=== PATIENT | male | born 1960 | race Caucasian/White ===

== ENCOUNTER → 2025-05-15 07:12 | Outpatient (REF) | payer OTHER, SELFPAY | LOC: PAVMRI 07:12 | PROVIDERS: ATTENDING PHYSICIAN Internal Medicine | DX: E78.2 Mixed hyperlipidemia (principal); R97.20 Elevated prostate specific antigen [PSA] | CPT/HCPCS: 72197; A9575 ==

== ENCOUNTER 2025-09-12 06:25 | Day surgery (SDC) | payer OTHER, SELFPAY | END 2025-09-12 09:28 | disposition home or self-care (01) | LOC: GI 06:25 | PROVIDERS: ATTENDING PHYSICIAN Internal Medicine Gastroenterology; FAMILY PHYSICIAN Internal Medicine | DX: Z12.11 Encounter for screening for malignant neoplasm of colon (principal); K64.8 Other hemorrhoids; K57.30 Diverticulosis of large intestine without perforation or abscess without bleeding; D12.0 Benign neoplasm of cecum; D12.3 Benign neoplasm of transverse colon; Z86.0100 Personal history of colon polyps, unspecified | CPT/HCPCS: 45385; 45380; 88305 ==